=== PATIENT | male | born 1990 ===

== ENCOUNTER 2017-10-28 08:33 | Emergency (ER) | payer SELFPAY ==
[2017-10-28 08:41] VITALS: BP 130/96; PULSE 75; TEMP 97.6; O2SAT 100
--- NOTE | 2017-10-28 09:17 | C.PDOC ---
History Of Present Illness 27 year old male presents to ED for evaluation of sore throat for the past 4 days. Pt reports pain on swallowing. Notes taking Tetracycline ,a few pills left over. Denies difficulty breathing, congestion, runny nose, ear pain, cough , shortness of breath, or fever. Time Seen by Provider: 10/28/17 08:39 Chief Complaint (Nursing): ENT Problem History Per: Patient History/Exam Limitations: None Onset/Duration Of Symptoms: Days (4) Current Symptoms Are (Timing): Still Present Quality (Mouth/Throat): Tenderness Past Medical History Reviewed: Historical Data, Nursing Documentation, Vital Signs Vital Signs: Last Vital Signs Temp 97.6 F 10/28/17 08:39 Pulse 75 10/28/17 08:39 Resp 18 10/28/17 09:22 BP 130/96 H 10/28/17 08:39 Pulse Ox 100 10/28/17 12:29 Family History: States: Unknown Family Hx - Social History Hx Alcohol Use: No Hx Substance Use: No - Immunization History Hx Influenza Vaccination: No Review Of Systems Except As Marked, All Systems Reviewed And Found Negative. Constitutional: Negative for: Fever, Chills ENT: Positive for: Throat Pain. Negative for: Ear Pain, Nose Discharge, Nose Congestion, Throat Swelling Respiratory: Negative for: Cough, Shortness of Breath Gastrointestinal: Negative for: Nausea, Vomiting, Abdominal Pain, Diarrhea Skin: Negative for: Rash, Bruising Neurological: Negative for: Headache, Dizziness Physical Exam - Physical Exam Appears: Non-toxic, No Acute Distress Skin: Normal Color, Warm, Dry Head: Atraumatic, Normacephalic Eye(s): bilateral: Normal Inspection, EOMI Ear(s): Bilateral: Normal Nose: Normal Oral Mucosa: Moist Tongue: Normal Appearing Lips: Normal Appearing Throat: Erythema, No Exudate, No Drooling Neck: Normal ROM, Supple Chest: Symmetrical Cardiovascular: Rhythm Regular Respiratory: Normal Breath Sounds, No Rales, No Rhonchi, No Wheezing Extremity: Normal ROM Neurological/Psych: Oriented x3, Normal Speech ED Course And Treatment O2 Sat by Pulse Oximetry: 100 (RA) Pulse Ox Interpretation: Normal Disposition - Disposition Referrals: [facility] [Outside] Disposition: HOME/ ROUTINE Disposition Time: 09:11 Condition: STABLE Additional Instructions: Gargle with warm salt water. Drink plenty of fluids and follow up with your PMD in 1-2 days. Prescriptions: Amoxicillin 875 mg PO BID #14 tablet Ibuprofen [Motrin] 600 mg PO Q6 PRN #20 tab PRN Reason: Pain, Mild (1-3) Mag&Al/Simet/Diphen/Lido [First Magic Mouthwash] 5 ml MM Q6 #1 kit Instructions: Pharyngitis (ED) Forms: [employer] (Wolof) Print Language: FILIPINO - Clinical Impression Clinical Impression: Acute pharyngitis - PA / OCCUPATIONAL SAFETY SPECIALIST / Resident Statement MD/DO has reviewed & agrees with the documentation as recorded. - Scribe Statement The provider has reviewed the documentation as recorded by the Shiibe Jose Ramirez All medical record entries made by the Shiibjoshua were at my direction and personally dictated by me. I have reviewed the chart and agree that the record accurately reflects my personal performance of the history, physical exam, medical decision making, and the department course for this patient. I have also personally directed, reviewed, and agree with the discharge instructions and disposition.
[2017-10-28 10:07] VITALS: RESP 18
== END 2017-10-28 09:22 | disposition home or self-care (01) ==
LOC: C.ER 08:33
DX: J02.9 Acute pharyngitis, unspecified (principal)